=== PATIENT | female | born 1960 | race Caucasian/White ===

== ENCOUNTER → 2018-05-13 | Outpatient (CLI) | payer BC ==
--- NOTE | 2018-05-13 15:59 | Diagnostic Imaging Report ---
PROCEDURE: CT urinary tract, rule out kidney stone. TECHNIQUE: Multiple contiguous axial images were obtained through the abdomen and pelvis without the use of intravenous contrast. INDICATION: Right-sided abdominal pain, hematuria. COMPARISON: None. FINDINGS: There is atelectasis/scarring in the lung bases. There is flattening of the diaphragm. The heart is normal in size. Evaluation of the solid organs is suboptimal in the absence of contrast. The liver, spleen, and pancreas are unremarkable on this noncontrast exam. The gallbladder is contracted. There is no hydronephrosis bilaterally. There is a low-density well-circumscribed lesion in the superior right kidney measuring 4.5 cm in diameter, most likely a simple cyst. There is also a cyst in the left kidney measuring 1.3 cm. No renal calculi are seen. The bowel loops are nondistended, although there are multiple fluid-filled loops of bowel in the lower abdomen. The appendix is normal. There is no free fluid or free air seen. The urinary bladder is mildly distended. There is mild aortic atherosclerosis. No lymphadenopathy is seen. No acute osseous abnormality is identified. IMPRESSION: 1. No hydronephrosis or obstructing renal calculi. Low-density lesions in the kidneys bilaterally most likely represent cysts. 2. Normal appendix. Dictated by: Dictated on workstation # [id number]
== END ==
LOC: RAD 13:55
PROVIDERS: ATTEND Nurse Practitioner Community Health
DX: N28.89 Other specified disorders of kidney and ureter (principal); R31.0 Gross hematuria
CPT/HCPCS: 74176